=== PATIENT | male | born 1930 | race Two or more races ===

== ENCOUNTER 2019-05-25 05:54 | Inpatient (IN) | payer MEDICARE ==
[~2019-05-25] VITALS: Ht 170.2 cm; Wt 72.6 kg
[2019-05-25] MEDS ORDERED: ACETAMINOPHEN325 MG PO (05:59)
[2019-05-25] MEDS ORDERED: CELEXA20 MG PO (06:00)
[2019-05-25] MEDS ORDERED: ASPIRIN81 MG PO (06:00)
[2019-05-25] MEDS ORDERED: VITAMIN D31000 UNI2 (06:00)
[2019-05-25] MEDS ORDERED: HYDROCODON-ACE1 EAC7 PO (06:01)
[2019-05-25] MEDS ORDERED: NAMENDA10 MG PO (06:02)
[2019-05-25] MEDS ORDERED: ATIVAN0.5 MG PO (06:02)
--- NOTE | 2019-05-25 06:06 | NUR ---
TRAUMA BAND # [id number]
--- NOTE | 2019-05-25 06:16 | NUR ---
PT IN PER EMS AFTER FALLING, STAFF STATED THERE WAS NO LOC. C/O HEAD, NACK, BACK AND RIGHT HIP PAIN, ARRIVED WITH C-COLLAR IN PLACE.
--- NOTE | 2019-05-25 06:39 | NUR ---
TO CT VIA STRETVHER PER X-RAY TECH.
--- NOTE | 2019-05-25 08:00 | NUR ---
SPOKE WITH HOSPICE NURSE HAMMAD @ [phone], CICI HA [phone], AND DAUGHTER WANDER [phone].
[2019-05-25 08:03] LABS: BASOPHILS 0.3 % (0-2); EOSINOPHILS 1.6 % (0-7); HEMATOCRIT 39.2 % (42.0-54.0); HEMOGLOBIN 13.6 g/dL (13.5-17.5); IMMATURE GRANULOCYTES 0.3 % (0-5); LYMPHOCYTES 7.8 % (15-50); MCH 30.6 pg (26.0-34.0); MCHC 34.7 g/dL (31.0-37.0); MCV 88.3 fL (80.0-100.0); MEAN PLATELET VOLUME 11.3 fL (7.4-10.4); PLATELET COUNT 202 10x3/uL (130-400); RBC 4.44 10x6/uL (4.20-6.10); RDW 14.5 % (11.5-14.5); WBC 11.5 10x3/uL (4.8-10.8)
[2019-05-25 08:13] LABS: APTT 25.5 SECONDS (22.8-39.4); INR 1.1 (0.85-1.17); PROTIME 13.7 SECONDS (11.6-15.0)
[2019-05-25 08:29] LABS: ALBUMIN 3.6 g/dL (3.4-5.0); ALKALINE PHOSPHATASE 88 U/L (46-116); ALT (SGPT) 19 U/L (10-68); BILIRUBIN - TOTAL 0.45 mg/dL (0.2-1.3); CALC OSMOLALITY 287 mosm/kg (275-300); CARBON DIOXIDE 28.6 mmol/L (21.0-32.0); CHLORIDE - SERUM 103 mmol/L (98-107); CREATININE - SERUM 0.9 mg/dL (0.6-1.3); GLUCOSE 250 mg/dL (74-106); POTASSIUM - SERUM 4.1 mmol/L (3.5-5.1); PROTEIN - SERUM 7.3 g/dL (6.4-8.2); SODIUM 140 mmol/L (136-145); UREA NITROGEN 16 mg/dL (7-18); eGFR NON AFRICAN AMERICAN 84 mL/min (90-120)
[2019-05-25 08:41] VITALS: BP 155/64
[2019-05-25 11:02] VITALS: BP 153/63; BMI 25.1
[2019-05-25 12:37] VITALS: BP 125/98
--- NOTE | 2019-05-25 12:51 | NUR ---
REC'D PT LYING ON BED, PT IS CONTINUALLY CONFUSED AT THIS TIME. SRX2 BED AT LOWEST SETTING CALL LIGHT WITHIN REACH WILL CONTINUE TO MONITOR
[2019-05-25 14:31] VITALS: Ht 170.2 cm; Wt 72.6 kg
--- NOTE | 2019-05-31 07:26 | MORECARE ---
CASE MANAGEMENT DISCHARGE SUMMARY PATIENT: MANUELITO WINTERS UNIT: [id number] ADM DATE: 05/25/19 AGE: 88 : [birth year] SEX: M ROOM/BED: D.2240 AUTHOR: YANN SRINIVASAN PHYSICIAN: REFERRING PHYSICIAN: PIETRO COPE MD DATE OF SERVICE: 05/31/19 Discharge Plan Patient Name: MANUELITO WINTERS Facility: [facility]:[place] : 1930 Planned Disposition: Anticipated Discharge Date: Discharge Date: 05/25/2019 Expected LOS: 0 Initial Reviewer: [email or web address] Initial Review Date: 05/31/2019 Generated: 05/31/19 8:25 am Patient Name: MANUELITO WINTERS Page [id number] at 0726 All edits/amendments must be made on the electronic document DICTATION DATE: 05/31/19724 ORAL PATHOLOGIST: ANDREIA 05/31/19724 RPT#: [id number] DC DATE:05/25/19 STATUS: DIS IN [facility] [address] [place] [address] END OF REPORT
== END 2019-05-25 16:47 | disposition hospice, inpatient (51) | DRG 535 ==
LOC: D.ER 05:54 → D.MS 08:01
PROVIDERS: Family Medicine; ADMIT Legal Medicine; ATTEND Legal Medicine
DX: S72.001A Fracture of unspecified part of neck of right femur, initial encounter for closed fracture (principal); R53.2 Functional quadriplegia; F02.81 Dementia in other diseases classified elsewhere, unspecified severity, with behavioral disturbance; R64 Cachexia; W19.XXXA Unspecified fall, initial encounter; Y92.129 Unspecified place in nursing home as the place of occurrence of the external cause; E11.9 Type 2 diabetes mellitus without complications; G30.1 Alzheimer's disease with late onset; E11.51 Type 2 diabetes mellitus with diabetic peripheral angiopathy without gangrene; F32.89 Other specified depressive episodes; L89.610 Pressure ulcer of right heel, unstageable

== ENCOUNTER 2019-05-25 16:59 | Inpatient (IN) | payer OTHER ==
[~2019-05-25] VITALS: Ht 180.3 cm; Wt 72.7 kg
[~2019-05-25 16:59] MED LIST: ACETAMINOPHEN325 MG PO; ASPIRIN81 MG PO; ATIVAN0.5 MG PO; CELEXA20 MG PO; HYDROCODON-ACE1 EAC7 PO; NAMENDA10 MG PO; VITAMIN D31000 UNI2
[2019-05-25 17:22] VITALS: BP 153/78; Ht 180.3 cm; Wt 72.7 kg
--- NOTE | 2019-05-25 17:38 | NUR ---
REC'D PT ON HOSPICE FOR [facility] PT HERE FOR GIP FOR SYMPTOM MANAGEMENT OF PAIN. PT SPEAKS PERUVIAN, VERY LITTLE [place]. PT HAS RIGHT FEMORAL NECK FRACTURE. PT IS CONTIUOUSLY CONFUSED, PLEASANT. RECEIVED ORDERS FROM HOSPICE NURSE PRAVEEN/ FOR HOSPICE ORDERS. BED AT LOWEST SETTING WITH FALL PRECAUTIONS IN PLACE. SRX2 WILL CONTINUE TO MONITOR
[2019-05-25 21:43] VITALS: BP 143/57
--- NOTE | 2019-05-25 23:05 | NUR ---
UNABLE TO PUT AND LEAVE ID BAND ON PATIENT WILL TRY TO PULL OFF BAND BECOME UPSET SETTLES WHEN REMOVED.
--- NOTE | 2019-05-26 00:40 | NUR ---
RESTING IN BED WITH NO S/S OF DISTRESS CALL LIGHT IN REACH BED LOW. CHECKED OFTEN FOR NEEDS AND SAFETY.
[2019-05-26 00:56] VITALS: BP 166/55
[2019-05-26 04:00] VITALS: BP 155/60
[2019-05-26 09:25] VITALS: BP 141/70
--- NOTE | 2019-05-26 18:46 | NUR ---
I have reviewed this patient and I concur with the Shift Assessment completed by the Licensed Practical Nurse today this shift.
--- NOTE | 2019-05-26 20:00 | NUR ---
PT ALERT BUT DISORIENTED TO TIME PLACE AND SITUATION. AWARE OF PAIN IN HIP ABLE TO VERBALIZE WHEN IN NEED OF PAIN MEDICINE. BED LOWERED AND LOCKED. REVIEWED CALL LIGHT USE AND DEMONSTRATION FOR PATIENT. NO SIGNS OF DISTRESS AT THIS TIME. CPOC.
--- NOTE | 2019-05-26 20:06 | NUR ---
PT RESTING EYES CLOSED NO SIGNS OF DISTRESS NOTED, WILL CONTINUE TO MONITOR CL IN REACH EASY RISE AND FALL OF CHEST
[2019-05-26 20:59] VITALS: BP 132/64
--- NOTE | 2019-05-26 22:30 | NUR ---
HOSPICE IN WITH PATIENT PERFORMING ASSESSMENT. NO OTHER NEEDS AT THIS TIME.
[2019-05-27 09:00] VITALS: BP 148/58
--- NOTE | 2019-05-27 11:42 | NUR ---
Wound care consult computer generated. No skin issues noted.
--- NOTE | 2019-05-27 12:35 | MORECARE ---
CASE MANAGEMENT DISCHARGE SUMMARY PATIENT: MANUELITO WINTERS UNIT: [id number] ADM DATE: 05/25/19 AGE: 88 : [birth year] SEX: M ROOM/BED: D.2240 AUTHOR: YANN SRINIVASAN PHYSICIAN: REFERRING PHYSICIAN: PIETRO COPE MD DATE OF SERVICE: 05/27/19 Discharge Plan Patient Name: MANUELITO WINTERS Facility: [facility]:[place] : 1930 Planned Disposition: Anticipated Discharge Date: Discharge Date: Expected LOS: Initial Reviewer: [email or web address] Initial Review Date: 05/27/2019 Generated: 05/27/19 1:35 pm Comments DCP- Discharge Planning Updated by [email or web address]: Kathy De Leon on 05/27/19 11:[address] Patient is admitted for [facility] Hospice with [place]. CM will continue to follow and assist with discharge planning/needs. Patient Name: MANUELITO WINTERS Page [id number] at 1235 All edits/amendments must be made on the electronic document DICTATION DATE: 05/27/19 1234 BOND RUNNER: ANDREIA 05/27/19 1234 RPT#: [id number] DC DATE: STATUS: ADM IN [facility] [address] [place] [address] END OF REPORT
[2019-05-27 20:00] VITALS: BP 168/65
--- NOTE | 2019-05-28 00:20 | NUR ---
REC'D CHGE OF SHIFT IN BED SUPINE POSITION.ALERT CONFUSED TO PLACE,TIME,SITUATION.RESP. DEEP AND EVEN.NEUROVASCULAR STATUS TO RIGHT HIP AND LEG WNL. GOOD PEDAL PULSE MOVES TOES WHEN TOUCHING BOTTOM OF FOOT.WILL CONTINUE TO MONITOR FOR ANY CHGES. IN NEUROVASCULAR STATUS AND FOLLOW CURRENT PLAN OF CARE.HOSPICE PROTOCOL IN PROGRESS
[2019-05-28 04:00] VITALS: BP 142/78
--- NOTE | 2019-05-28 05:21 | NUR ---
I have reviewed this patient and I concur with the Shift Assessment completed by the Licensed Practical Nurse today this shift.
--- NOTE | 2019-05-28 08:40 | NUR ---
PATIENT IN BED WITH IV INTACT. NO COMPLAINTS OR SIGNS OF DISTRESS. EYES CLOSED RESTING. CALL LIGHT WITHIN REACH.
[2019-05-28 09:00] VITALS: BP 145/69
--- NOTE | 2019-05-28 18:45 | NUR ---
PATIENT IN BED WITH NO COMPLAINTS OR SIGNS OF DISTRESS. CALLL IGHT WITHIN REACH.
[2019-05-28 21:07] VITALS: BP 128/58
[2019-05-29 01:00] VITALS: BP 133/56
--- NOTE | 2019-05-29 01:55 | NUR ---
REC'D AT CHGE OF SHIFT SITTING UPRIGHT IN BED DTR ASSISTING WITH HAMBURGER FRIES MILKSHAKE.ENJOYING MILKSHAKE.WILL CONTINUE TO MONITOR FOR ANY CHGES.ALSO IN NEUROVASCULAR STATUS AND FOLLOW CURRENT PLAN OF CARE.
[2019-05-29 05:02] VITALS: BP 166/44
--- NOTE | 2019-05-29 06:50 | NUR ---
I have reviewed this patient and I concur with the Shift Assessment completed by the Licensed Practical Nurse today this shift.
--- NOTE | 2019-05-29 07:40 | NUR ---
CL IN REACH. POSSE ALARM ON. DENIES ANY NEEDS. SAYS HE IS NOT IN ANY PAIN. WCTM
[2019-05-29 09:10] VITALS: BP 118/58
--- NOTE | 2019-05-29 12:13 | MORECARE ---
CASE MANAGEMENT DISCHARGE SUMMARY PATIENT: MANUELITO WINTERS UNIT: [id number] ADM DATE: 05/25/19 AGE: 88 : [birth year] SEX: M ROOM/BED: D.2240 AUTHOR: YANN SRINIVASAN PHYSICIAN: REFERRING PHYSICIAN: PIETRO COPE MD DATE OF SERVICE: 05/29/19 Discharge Plan Patient Name: MANUELITO WINTERS Facility: [facility]:[employer] : 1930 Planned Disposition: Anticipated Discharge Date: Discharge Date: Expected LOS: Initial Reviewer: [email or web address] Initial Review Date: 05/27/2019 Generated: 05/29/19 1:12 pm Comments DCP- Discharge Planning Updated by [email or web address]: Kathy De Leon on 05/27/19 11:[address] Patient is admitted for [facility] Hospice with [place]. CM will continue to follow and assist with discharge planning/needs. External Providers External Provider: [facility] and [facility] Next Contact Date: Service Request Date: Service Type: Resolution: Reviewer: Comments: Last DP export: 05/27/19 11:35 am Patient Name: MANUELITO WINTERS Page [id number] at 1213 All edits/amendments must be made on the electronic document DICTATION DATE: 05/29/19 1212 AVIATION SURVIVAL TECHNICIAN: ANDREIA 05/29/19 1212 RPT#: [id number] DC DATE: STATUS: ADM IN [facility] [address] [place] [address] END OF REPORT
--- NOTE | 2019-05-29 12:20 | MORECARE ---
CASE MANAGEMENT DISCHARGE SUMMARY PATIENT: MANUELITO WINTERS UNIT: [id number] ADM DATE: 05/25/19 AGE: 88 : [birth year] SEX: M ROOM/BED: D.2240 AUTHOR: YANN SRINIVASAN PHYSICIAN: REFERRING PHYSICIAN: PIETRO COPE MD DATE OF SERVICE: 05/29/19 Discharge Plan Patient Name: MANUELITO WINTERS Facility: [facility]:[place] : 1930 Planned Disposition: Anticipated Discharge Date: Discharge Date: Expected LOS: Initial Reviewer: [email or web address] Initial Review Date: 05/27/2019 Generated: 05/29/19 1:20 pm Comments DCP- Discharge Planning Updated by [email or web address]: Kathy De Leon on 05/29/19 11:[address] Received a call from sara Rossi for [facility], that they will accept patient to [facility]. I met with the patient but unable to get any information from him. I called his daughter (Carin) and left a message for her to call me. I also informed Juni what Piedad said and I will call him when I get confirmation from the daughter that this is what she is wanting to do. CM will continue to follow and assist with discharge planning/needs. DCP- Discharge Planning Updated by [email or web address]: Kathy De Leon on 05/27/19 11:[address] Patient is admitted for [facility] Hospice with [place]. CM will continue to follow and assist with discharge planning/needs. Last DP export: 05/29/19 11:12 am Patient Name: MANUELITO WINTERS Page [id number] at 1220 All edits/amendments must be made on the electronic document DICTATION DATE: 05/29/19 1220 INSTALLATIONS INSPECTOR: ANDREIA 05/29/19 1220 RPT#: [id number] DC DATE: STATUS: ADM IN [facility] [address] [place] [address] END OF REPORT
--- NOTE | 2019-05-29 12:46 | MORECARE ---
CASE MANAGEMENT DISCHARGE SUMMARY PATIENT: MANUELITO WINTERS UNIT: [id number] ADM DATE: 05/25/19 AGE: 88 : [birth year] SEX: M ROOM/BED: D.2240 AUTHOR: YANN SRINIVASAN PHYSICIAN: REFERRING PHYSICIAN: PIETRO COPE MD DATE OF SERVICE: 05/29/19 Discharge Plan Patient Name: MANUELITO WINTERS Facility: [facility]:[place] : 1930 Planned Disposition: Anticipated Discharge Date: Discharge Date: Expected LOS: Initial Reviewer: [email or web address] Initial Review Date: 05/27/2019 Generated: 05/29/19 1:46 pm Comments DCP- Discharge Planning Updated by [email or web address]: Kathy De Leon on 05/29/19 11:[address] Patient's daughter returned my call. She states she is going to speak with Juni at Dr. Cope's office at 2:30 and they will come up with discharge plan. She states she would like him to go to [facility] for long term. She states she understands Hospice would be revoked. I informed Juni and asked him to call me back after 2:30 call for planning. CM will continue to follow and assist with discharge plan/needs. DCP- Discharge Planning Updated by [email or web address]: Kathy De Leon on 05/29/19 11:[address] Received a call from sara Rossi for [facility], that they will accept patient to [facility]. I met with the patient but unable to get any information from him. I called his daughter (Carin) and left a message for her to call me. I also informed Juni what Piedad said and I will call him when I get confirmation from the daughter that this is what she is wanting to do. CM will continue to follow and assist with discharge planning/needs. DCP- Discharge Planning Updated by [id number]: Kathy De Leon on 05/27/19 11:[address] Patient is admitted for [facility] Hospice with [place]. CM will continue to follow and assist with discharge planning/needs. Coverage Notice Reviewer: [id number] - Kathy De Leon Notice Issued Date-Time: 05/29/2019 12:41 Notice Type: Patient Choice Letter Notice Delivered To: Family Member Relationship to Patient: Daughter Medical Laboratory Technologist Name: Carin Morris Delivery Method: PHONE - Phone Kassi Days: Prior Verbal Notification: Recipient Understood Notice: Yes Recipient Signature: Med Rec Note Co-signed by Attending: Coverage Notice Comment: SHAYY for [facility] Last DP export: 05/29/19 11:20 am Patient Name: MANUELITO WINTERS Page [id number] at 1246 All edits/amendments must be made on the electronic document DICTATION DATE: 05/29/19 1245 CATTLE PRODUCERS: ANDREIA 05/29/19 1245 RPT#: [id number] DC DATE: STATUS: ADM IN [facility] [address] [place] [address] END OF REPORT
--- NOTE | 2019-05-29 14:19 | NUR ---
DAUGHTER CALLED TO SEE IF THE WHEELCHAIR CUSHION WAS IN THE PATIENTS ROOM. I SEARCHED BUT DID NOT FIND ONE. CL IN REACH. NO NEEDS AT THIS TIME.
[2019-05-29] MEDS ORDERED: Morphine CONCENTRATE SL (14:53)
--- NOTE | 2019-05-29 15:34 | MORECARE ---
CASE MANAGEMENT DISCHARGE SUMMARY PATIENT: MANUELITO WINTERS UNIT: [id number] ADM DATE: 05/25/19 AGE: 88 : [birth year] SEX: M ROOM/BED: D.2240 AUTHOR: YANN SRINIVASAN PHYSICIAN: REFERRING PHYSICIAN: PIETRO COPE MD DATE OF SERVICE: 05/29/19 Discharge Plan Patient Name: MANUELITO WINTERS Facility: [facility]:[place] : 1930 Planned Disposition: Anticipated Discharge Date: Discharge Date: Expected LOS: Initial Reviewer: [id number] Initial Review Date: 05/27/2019 Generated: 05/29/19 4:34 pm Comments DCP- Discharge Planning Updated by [email or web address]: Kathy De Leon on 05/29/19 2:[address] Received order for discharge. I received a called from Becca Keith with [facility] that she has received signed paper work that hospice was revocated and he will discharge to [facility]. I called Piedad Meadows with [facility] and he will go to room [address] [place] [address] via ambulance. production control coordinator informed. Clinical faxed to [facility]. He will be discharging to a skilled bed. DCP- Discharge Planning Updated by [id number]: Kathy De Leon on 05/29/19 11:[address] Patient's daughter returned my call. She states she is going to speak with Juni at Dr. Cope's office at 2:30 and they will come up with discharge plan. She states she would like him to go to [facility] for jail. She states she understands Hospice would be revoked. I informed Juni and asked him to call me back after 2:30 call for planning. CM will continue to follow and assist with discharge plan/needs. DCP- Discharge Planning Updated by [email or web address]: Kathy De Leon on 05/29/19 11:[address] Received a call from sara Rossi for [facility], that they will accept patient to skilled. I met with the patient but unable to get any information from him. I called his daughter (Carin) and left a message for her to call me. I also informed Juni what Piedad said and I will call him when I get confirmation from the daughter that this is what she is wanting to do. CM will continue to follow and assist with discharge planning/needs. DCP- Discharge Planning Updated by [email or web address]: Kathy De Leon on 05/27/19 11:[address] Patient is admitted for [facility] Hospice with [place]. CM will continue to follow and assist with discharge planning/needs. Coverage Notice Reviewer: [id number] - Kathy De Leon Notice Issued Date-Time: 05/29/2019 12:41 Notice Type: Patient Choice Letter Notice Delivered To: Family Member Relationship to Patient: Daughter Information Resource Consultant Name: Carin Morris Delivery Method: PHONE - Phone Kassi Days: Prior Verbal Notification: Recipient Understood Notice: Yes Recipient Signature: Med Rec Note Co-signed by Attending: Coverage Notice Comment: [facility] Last DP export: 05/29/19 11:46 am Patient Name: MANUELITO WINTERS Page [id number] at 1534 All edits/amendments must be made on the electronic document DICTATION DATE: 05/29/19 1534 CONSULTANT NURSE: ANDREIA 05/29/19 1534 RPT#: [id number] DC DATE: STATUS: ADM IN [facility] [address] [place] [address] END OF REPORT
--- NOTE | 2019-05-29 16:39 | MORECARE ---
CASE MANAGEMENT DISCHARGE SUMMARY PATIENT: MANUELITO WINTERS UNIT: [id number] ADM DATE: 05/25/19 AGE: 88 : [birth year] SEX: M ROOM/BED: D.2240 AUTHOR: [email or web address] PHYSICIAN: REFERRING PHYSICIAN: PIETRO COPE MD DATE OF SERVICE: 05/29/19 Discharge Plan Patient Name: MANUELITO WINTERS Facility: [facility]:[place] : 1930 Planned Disposition: Anticipated Discharge Date: Discharge Date: Expected LOS: Initial Reviewer: [email or web address] Initial Review Date: 05/27/2019 Generated: 05/29/19 5:39 pm Comments DCP- Discharge Planning Updated by [id number]: Kathy De Leon on 05/29/19 3:[address] Becca Keith with [facility] called and states she has received emergency 5 more days of respite at [facility]. I spoke with Carin (daughter) and she agrees to the respite at [facility]. He will need to go via ambulance to the [facility]. [facility] is accepting tonight. Piedad Meadows informed. adolescent coordinator and primary nurse informed. He is discharging to [facility] on hospice respite care. DCP- Discharge Planning Updated by [email or web address]: Kathy De Leon on 05/29/19 2:[address] Received order for discharge. I received a called from Becca Keith with [facility] that she has received signed paper work that hospice was revocated and he will discharge to [facility]. I called Piedad Meadows with [facility] and he will go to room [address] [place] [address] via ambulance. adolescent coordinator informed. Clinical faxed to [facility]. He will be discharging to a skilled bed. DCP- Discharge Planning Updated by [email or web address]: Kathy De Leon on 05/29/19 11:[address] Patient's daughter returned my call. She states she is going to speak with Juni at Dr. Cope's office at 2:30 and they will come up with discharge plan. She states she would like him to go to [facility] for long-term. She states she understands Hospice would be revoked. I informed Juni and asked him to call me back after 2:30 call for planning. CM will continue to follow and assist with discharge plan/needs. DCP- Discharge Planning Updated by [email or web address]: Kathy De Leon on 05/29/19 11:[address] Received a call from sara Rossi for [facility], that they will accept patient to skilled. I met with the patient but unable to get any information from him. I called his daughter (Carin) and left a message for her to call me. I also informed Juni what Piedad said and I will call him when I get confirmation from the daughter that this is what she is wanting to do. CM will continue to follow and assist with discharge planning/needs. DCP- Discharge Planning Updated by [email or web address]: Kathy De Leon on 05/27/19 11:[address] Patient is admitted for [facility] Hospice with [place]. CM will continue to follow and assist with discharge planning/needs. Coverage Notice Reviewer: [id number] - Kathy De Leon Notice Issued Date-Time: 05/29/2019 12:41 Notice Type: Patient Choice Letter Notice Delivered To: Family Member Relationship to Patient: Daughter Sba Business Development Officer Name: Carin Morris Delivery Method: PHONE - Phone Kassi Days: Prior Verbal Notification: Recipient Understood Notice: Yes Recipient Signature: Med Rec Note Co-signed by Attending: Coverage Notice Comment: [facility]Y [facility] Last DP export: 05/29/19 2:34 pm Patient Name: MANUELITO WINTERS Page [phone] at 1639 All edits/amendments must be made on the electronic document DICTATION DATE: 05/29/191637 MOVING VAN DRIVER: ANDREIA 05/29/198 RPT#: [id number] DC DATE: STATUS: ADM IN [facility] [address] [place] [address] END OF REPORT
== END 2019-05-29 19:36 | disposition home health service (06) | DRG 951 ==
LOC: D.MS 16:59
PROVIDERS: ADMIT Legal Medicine; ATTEND Legal Medicine
DX: Z51.5 Encounter for palliative care (principal)